=== PATIENT | female | born 1995 | race African-American/Black ===

== ENCOUNTER 2019-05-29 00:18 | Emergency (ER) | payer OTHER ==
--- NOTE | 2019-05-29 00:27 | ED Physician Documentation ---
History of Present Illness - Stated complaint Stated Complaint: N/V/D - History obtained from History obtained from: Patient (Patient is a very pleasant 24-year-old female who presents with a 2-day history of nausea, diarrhea without abdominal pain or pelvic pain or fevers or headache or neck pain or rashes. She tried taking Pepto-Bismol yesterday but she continues to be nauseated and have some diarrhea reports her last menstrual period was 2 weeks ago.She reports she is otherwise healthy and up-to-date on all of her immunizations) Review of Systems Constitutional: reports: Reviewed and negative Eyes: reports: Reviewed and negative Ears: reports: Reviewed and negative Nose: reports: Reviewed and negative Throat: reports: Reviewed and negative Cardiac: reports: Reviewed and negative Respiratory: reports: Reviewed and negative GI: reports: Nausea, Vomiting, Diarrhea : reports: Reviewed and negative Skin: reports: Reviewed and negative Musculoskeletal: reports: Reviewed and negative Neurologic: reports: Reviewed and negative Psychiatric: reports: Reviewed and negative Endocrine: reports: Reviewed and negative Immunocompromised: reports: Reviewed and negative PD PAST MEDICAL HISTORY - Present Medications Home Medications: Ambulatory Orders Medication Instructions Recorded Confirmed Ondansetron Odt [Zofran] 4 mg TL Q6H PRN #10 tablet 05/29/19 - Allergies Allergies/Adverse Reactions: Allergies Allergy/AdvReac Type Severity Reaction Status Date / Time No Known Drug Allergies Allergy Verified 05/29/19 00:31 PD ED PE NORMAL - Vitals Vital signs reviewed: Yes - General General: Alert and oriented X 3, No acute distress, Well developed/nourished - HEENT HEENT: Atraumatic, PERRL, EOMI, Ears normal, Moist mucous membranes, Pharynx benign, Dentition benign - Neck Neck: Supple, no meningeal sign, No JVD, No bruit - Cardiac Cardiac: RRR, No murmur, Strong equal pulses - Respiratory Respiratory: No respiratory distress, Clear bilaterally - Abdomen Abdomen: Normal bowel sounds, Soft, Non tender, Non distended, No organomegaly - Back Back: No CVA TTP, No spinal TTP - Derm Derm: Normal color, Warm and dry, No rash - Extremities Extremities: No deformity, No tenderness to palpate, Normal ROM s pain, No edema, No calf tenderness / cord - Neuro Neuro: Alert and oriented X 3, 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2 (NORMAL) Ur Leukocyte Esterase NEGATIVE Urine RBC 6-10 H Urine WBC 0-3 Ur Squamous Epith Cells MANY Squamous H Urine Bacteria Rare Ur Microscopic Review INDICATED Urine Culture Comments NOT INDICATED Urine HCG, Qual NEGATIVE PD MEDICAL DECISION MAKING - ED course Complexity details: re-evaluated patient (01:45 Patient is well-appearing, she is tolerated p.o. challenge she is nontoxic and nonseptic appearing her vital signs are stable she is requesting to be discharged home patient will be discharged home and follow-up with her physician today.), considered differential (Consistent with viral gastroenteritis) Departure - Departure Disposition: 01 Home, Self Care Clinical Impression: Gastroenteritis Condition: Good Instructions: ED Gastroenteritis Viral Follow-Up: SANDY MILLER [Primary Care Provider] - 05/29/19 Prescriptions: Ondansetron Odt [Zofran] 4 mg TL Q6H PRN #10 tablet PRN Reason: Nausea / Vomiting
[2019-05-29] MEDS ORDERED: LOPERAMIDE 2 MG CAPSULE PO STA (00:37)
[2019-05-29] MEDS ORDERED: ONDANSETRON ODT 4 MG TABLET TL STA (00:38)
[2019-05-29] MEDS ORDERED: ONDANSETRON ODT 4 MG Prepack 2 TL PRN (00:38)
[2019-05-29 00:49] VITALS: BP 115/67
[2019-05-29 00:52] LABS: BILIRUBIN,URINE NEGATIVE (NEGATIVE); GLUCOSE, URINE (UA) NEGATIVE (NEGATIVE); KETONES,URINE (UA) NEGATIVE (NEGATIVE); LEUKOCYTE ESTERASE, URINE NEGATIVE (NEGATIVE); NITRITE,URINE NEGATIVE (NEGATIVE); OCCULT BLOOD,URINE LARGE (NEGATIVE); PROTEIN,URINE NEGATIVE (NEGATIVE); UROBILINOGEN,URINE 0.2 (NORMAL) E.U./dL (NORMAL)
[2019-05-29 00:53] LABS: CLARITY,URINE CLEAR (CLEAR)
[2019-05-29 00:54] LABS: HCG UR QUAL NEGATIVE
[2019-05-29 00:58] LABS: BACTERIA,URINE Rare /HPF (None Seen); SQUAMOUS EPITHELIAL CELL,UR MANY Squamous (<= Few)
== END 2019-05-29 01:56 | disposition home or self-care (01) ==
LOC: ED 00:18
DX: K52.9 Noninfective gastroenteritis and colitis, unspecified (principal)
CPT/HCPCS: 81001; 81025; 99283; A9270; Q0162; 81003; 87086

== ENCOUNTER 2019-07-20 07:01 | Emergency (ER) | payer OTHER ==
--- NOTE | 2019-07-20 07:49 | ED Physician Documentation ---
PD HPI HEADACHE - Stated complaint Stated Complaint: HEADACHE - Chief complaint Chief Complaint: Neuro - History obtained from History obtained from: Patient - History of Present Illness Timing - onset: Yesterday Timing - onset during: Light activity Timing - details: Abrupt onset, Still present Worst headache ever?: No: Worst headache ever? (similar to prior headaches, but recent Rx med did not work, and she called her PCP who directed her to come to ER.) Location: Right Quality: Aching. No: Thunderclap Associated symptoms: Nausea. No: Fever, Stiff neck, Vomiting, Weakness, Vision changes Worsened by: Light. No: Noise Contributing factors: No: Anticoagulated, Hypertension, Recent illness, Trauma Similar symptoms before: Diagnosis (has had similar headaches about 3-4 times per month for the past 4 months, Dx with likely migraines and Rx with Cafergot, which has helped a couple of times and not today.) Review of Systems Constitutional: denies: Fever, Chills Nose: denies: Rhinorrhea / runny nose, Congestion Throat: denies: Sore throat Respiratory: denies: Cough GI: reports: Nausea. denies: Abdominal Pain, Vomiting, Diarrhea Neurologic: reports: Headache. denies: Focal weakness, Numbness, Confused, Altered mental status, Head injury PD PAST MEDICAL HISTORY - Past Medical History Cardiovascular: None Respiratory: None Neuro: Migraines (recent Dx) Endocrine/Autoimmune: None GI: None - Past Surgical History Past Surgical History: No - Present Medications Home Medications: Ambulatory Orders Medication Instructions Recorded Confirmed Ondansetron Odt [Zofran] 4 mg TL Q6H PRN #10 tablet 05/29/19 Ibuprofen [Motrin] 600 mg PO TID PRN #25 tab 07/20/19 Ondansetron Odt [Zofran] 4 mg TL Q6H PRN #15 tablet 07/20/19 Rizatriptan Benzoate [Rizatriptan] 10 mg PO BID PRN #10 tablet 07/20/19 - Allergies Allergies/Adverse Reactions: Allergies Allergy/AdvReac Type Severity Reaction Status Date / Time No Known Drug Allergies Allergy Verified 07/20/19 07:11 - Social History Does the pt smoke?: No Smoking Status: Never smoker Does the pt drink ETOH?: No Does the pt have substance abuse?: No - Immunizations Immunizations are current?: Yes - POLST Patient has POLST: No PD ED PE NORMAL - Vitals Vital signs reviewed: Yes - General General: Alert and oriented X 3, No acute distress, Well developed/nourished - HEENT HEENT: Pharynx benign - Neck Neck: Supple, no meningeal sign, No adenopathy - Cardiac Cardiac: RRR, No murmur - Respiratory Respiratory: Clear bilaterally - Derm Derm: Normal color, Warm and dry - Extremities Extremities: No edema, No calf tenderness / cord - Neuro Neuro: Alert and oriented X 3, 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 NO red flags on history/exam to suggest need for testing. ), d/w patient Departure - Departure Disposition: 01 Home, Self Care Clinical Impression: Acute headache Qualifiers: Headache type: unspecified Intractability: not intractable Qualified Code(s): R51 - Headache Migraine Qualifiers: Migraine type: without aura Status migrainosus presence: without status migrainosus Intractability: not intractable Qualified Code(s): G43.009 - Migraine without aura, not intractable, without status migrainosus Condition: Stable Record reviewed to determine appropriate education?: Yes Instructions: ED Headache Migraine Follow-Up: SANDY MILLER [Primary Care Provider] - Prescriptions: Ibuprofen [Motrin] 600 mg PO TID PRN #25 tab PRN Reason: Pain Ondansetron Odt [Zofran] 4 mg TL Q6H PRN #15 tablet PRN Reason: Nausea / Vomiting Rizatriptan Benzoate [Rizatriptan] 10 mg PO BID PRN #10 tablet PRN Reason: Migraine Comments: Stay well-hydrated. For subsequent migraine headaches, you can use either the Cafergot current prescription or try the rizatriptan new prescription early in the course of the migraine to see if it improves it. Concurrent with that you can use ondansetron for nausea and can also use ibuprofen anti-inflammatory along with that as well. Follow-up with your primary care regarding further management of the headaches. If there frequent and off or not improved well with the oral medications, they may initiate daily medicine to try to reduce the frequency of them. Forms: Activity restrictions Discharge Date/Time: 07/20/19 09:43
[2019-07-20] MEDS ORDERED: ONDANSETRON ODT 4 MG TABLET TL STA (08:05)
[2019-07-20] MEDS ORDERED: KETOROLAC 30 MG/ML VIAL IM STA (08:05)
[2019-07-20] MEDS ORDERED: SUMAtriptan 6 MG/0.5 ML VIAL SUBQ STA (08:05)
[2019-07-20 09:18] VITALS: BP 117/62
== END 2019-07-20 09:43 | disposition home or self-care (01) ==
LOC: ED 07:01
DX: G43.009 Migraine without aura, not intractable, without status migrainosus (principal)
CPT/HCPCS: 96372; 99283; 99284; Q0162